=== PATIENT | female | born 2000 | race Caucasian/White ===

== ENCOUNTER 2020-08-25 10:29 | Outpatient (REF) | payer OTHER, SELFPAY ==
--- NOTE | 2020-08-25 09:30 | PAPFT_PTH ---
PATIENT: ABHINAV MENDENHALL LOC: [facility] U#:[id number] AGE/SX: 20/F ROOM: RE08/25/[address]: Lauryn Salazar : 2000 BED: DIS: 08/25/2020 SPEC #: [id number] RECD: 08/26/20 13:08 STATUS: ADEOLA REQ #: [id number] TRISTAN: 08/25/20 09:[address]: Lauryn Salazar DEPT: [facility] Cytology RECD BY: Janie Mitchell ENTERED: 08/26/20 13:09 SP TYPE: PAPFT OTHR DR: Myrtle Adames Tissues: 1 - CX/ENDOCX FOR PAP SMEARS Procedures: PAP THIN PREP/[facility] Screening Comments: [id number]
== END 2020-08-25 10:49 ==
LOC: NCHCN 10:29
PROVIDERS: PCP Nurse Practitioner Family; Visit Provider Family Medicine
DX: Z12.4 Encounter for screening for malignant neoplasm of cervix (principal); Z00.00 Encounter for general adult medical examination without abnormal findings
CPT/HCPCS: 88142